=== PATIENT | male | born 1995 | race Caucasian/White ===

== ENCOUNTER 2018-04-15 12:06 | Inpatient (IN) | payer OTHER, MEDICAID ==
[2018-04-15 13:59] LABS: ALBUMIN 4.1 GM/DL (3.2-5.2); ALBUMIN/GLOBULIN RATIO 0.93 (1.00-1.93); ALKALINE PHOSPHATASE 73 U/L (45-117); ALT/SGPT 20 U/L (12-78); ANION GAP 3 MEQ/L (8-16); AST/SGOT 15 U/L (7-37); BILIRUBIN,DIRECT < 0.1 MG/DL (0.0-0.2); BILIRUBIN,TOTAL 0.3 MG/DL (0.2-1.0); BLOOD UREA NITROGEN 9 MG/DL (7-18); CALCIUM LEVEL 9.4 MG/DL (8.5-10.1); CARBON DIOXIDE LEVEL 33 MEQ/L (21-32); CHLORIDE LEVEL 103 MEQ/L (98-107); CREATININE FOR GFR 0.74 MG/DL (0.70-1.30); GLOMERULAR FILTRATION RATE > 60.0 (>60); GLUCOSE, FASTING 80 MG/DL (70-100); POTASSIUM SERUM 3.8 MEQ/L (3.5-5.1); SODIUM LEVEL 139 MEQ/L (136-145); TOTAL PROTEIN 8.5 GM/DL (6.4-8.2)
[2018-04-15 14:03] LABS: LACTIC ACID SEPSIS PROTOCOL 0.9 MMOL/L (0.4-2.0)
[2018-04-15] MEDS: MORPHINE 4 MG/ML 1ML VIAL/SYRINGE (J2270) IV (14:28)
[2018-04-15] MEDS: ONDANSETRON 4MG/2ML VIAL (J2405) IV (14:28)
[2018-04-15] MEDS: IBUPROFEN 400 MG TAB PO (14:29)
[2018-04-15] MEDS ORDERED: ACYCLOVIR IV (15:00)
[2018-04-15] MEDS ORDERED: FLUID PLACE HOLDER IV (15:00)
[2018-04-15] MEDS: PIPERACILLIN/TAZOBACTAM SOD 3.375 GM in D5W MINI-BAG PLUS 50 ML IV (15:40)
[2018-04-15] MEDS: methylPREDNISolone INJ 125 MG/2 ML VIAL (J2930) IV (15:40)
[2018-04-15 15:57] LABS: BASO % 0.2 % (0.0-1.0); EOS % 0.1 % (0.0-3.0); HEMATOCRIT 41.7 % (42.0-52.0); HEMOGLOBIN 14.2 g/dl (13.5-17.5); IMMATURE GRANULOCYTE % 0.4 % (0-3.0); LYMPH # 2.9 10^3/uL (1.5-6.5); LYMPH % 21.8 % (24.0-44.0); MEAN CORPUSCULAR HEMOGLOBIN 28.9 pg (27.0-33.0); MEAN CORPUSCULAR HGB CONC 34.1 g/dl (32.0-36.5); MEAN CORPUSCULAR VOLUME 84.9 fl (80.0-96.0); MONO # 1.4 10^3/uL (0.0-0.8); MONO % 10.6 % (0.0-5.0); NEUTROPHILS # 8.9 10^3/uL (1.8-7.7); NEUTROPHILS % 66.9 % (36.0-66.0); PLATELET COUNT, AUTOMATED 256 10^3/uL (150-450); RED BLOOD COUNT 4.91 10^6/uL (4.30-6.10); RED CELL DISTRIBUTION WIDTH 12.4 % (11.5-14.5); WHITE BLOOD COUNT 13.3 10^3/uL (4.0-10.0)
[2018-04-15] MEDS: ACYCLOVIR 710 MG in NS 250 ML IV (16:47)
[2018-04-15] MEDS: TRIFLURIDINE 1% OPHTH SOLN 7.5 ML OD ×4 (16:48→23:12)
[2018-04-15] MEDS: PANTOPRAZOLE 40MG TAB (PROTONIX) PO (17:13)
[2018-04-15] MEDS: KETOROLAC 30 MG/ML VIAL (J1885) IV (20:22)
[2018-04-15] MEDS: cefTRIAXone SOD 1 GM in D5W MINI-BAG PLUS 50 ML IV (20:23)
[2018-04-15 21:55] LABS: C REACTIVE PROTEIN QUANTITATIV 1.99 MG/DL (0.00-0.30)
[2018-04-16] MEDS: ACYCLOVIR 710 MG in NS 250 ML IV ×3 (01:04→17:14)
[2018-04-16] MEDS: TRIFLURIDINE 1% OPHTH SOLN 7.5 ML OD ×12 (01:04→23:10)
[2018-04-16 06:51] LABS: HEMATOCRIT 39.6 % (42.0-52.0); HEMOGLOBIN 13.6 g/dl (13.5-17.5); MEAN CORPUSCULAR HEMOGLOBIN 28.7 pg (27.0-33.0); MEAN CORPUSCULAR HGB CONC 34.3 g/dl (32.0-36.5); MEAN CORPUSCULAR VOLUME 83.5 fl (80.0-96.0); PLATELET COUNT, AUTOMATED 279 10^3/uL (150-450); RED BLOOD COUNT 4.74 10^6/uL (4.30-6.10); RED CELL DISTRIBUTION WIDTH 12.3 % (11.5-14.5); WHITE BLOOD COUNT 18.2 10^3/uL (4.0-10.0)
[2018-04-16 07:09] LABS: ANION GAP 8 MEQ/L (8-16); BLOOD UREA NITROGEN 17 MG/DL (7-18); CALCIUM LEVEL 9.2 MG/DL (8.5-10.1); CARBON DIOXIDE LEVEL 26 MEQ/L (21-32); CHLORIDE LEVEL 107 MEQ/L (98-107); CREATININE FOR GFR 0.81 MG/DL (0.70-1.30); GLOMERULAR FILTRATION RATE > 60.0 (>60); GLUCOSE, FASTING 107 MG/DL (70-100); POTASSIUM SERUM 4.2 MEQ/L (3.5-5.1); SODIUM LEVEL 141 MEQ/L (136-145)
[2018-04-16] MEDS: PANTOPRAZOLE 40MG TAB (PROTONIX) PO (08:54)
[2018-04-16] MEDS: ENOXAPARIN 40 MG/0.4 ML SYRINGE (J1650) SC (08:54)
[2018-04-16] MEDS: VENLAFAXINE **XR** 75MG CAPSULE PO (08:54)
[2018-04-16] MEDS: KETOROLAC 30 MG/ML VIAL (J1885) IV ×3 (08:55→23:11)
[2018-04-16] MEDS ORDERED: VENLAFAXINE **XR** 75MG CAPSULE PO (09:00)
[2018-04-16] MEDS: ACETAMINOPHEN TAB 650MG DOSE (2X325MG) PO (11:19)
[2018-04-16] MEDS: methylPREDNISolone INJ 125 MG/2 ML VIAL (J2930) IV (15:58)
[2018-04-16] MEDS: NICOTINE 21MG/24HR 1 EA TRANSDERMAL TD (18:03)
[2018-04-16] MEDS: cefTRIAXone SOD 1 GM in D5W MINI-BAG PLUS 50 ML IV (20:57)
[2018-04-17] MEDS: ACYCLOVIR 710 MG in NS 250 ML IV ×3 (00:59→18:22)
[2018-04-17] MEDS: TRIFLURIDINE 1% OPHTH SOLN 7.5 ML OD ×13 (01:00→23:00)
[2018-04-17 06:46] LABS: HEMATOCRIT 40.3 % (42.0-52.0); HEMOGLOBIN 13.4 g/dl (13.5-17.5); MEAN CORPUSCULAR HEMOGLOBIN 28.3 pg (27.0-33.0); MEAN CORPUSCULAR HGB CONC 33.3 g/dl (32.0-36.5); PLATELET COUNT, AUTOMATED 294 10^3/uL (150-450); RED BLOOD COUNT 4.74 10^6/uL (4.30-6.10); RED CELL DISTRIBUTION WIDTH 12.1 % (11.5-14.5); WHITE BLOOD COUNT 16.8 10^3/uL (4.0-10.0)
[2018-04-17] MEDS: KETOROLAC 30 MG/ML VIAL (J1885) IV (06:53)
[2018-04-17 07:03] LABS: ANION GAP 4 MEQ/L (8-16); BLOOD UREA NITROGEN 14 MG/DL (7-18); C REACTIVE PROTEIN QUANTITATIV 1.43 MG/DL (0.00-0.30); CALCIUM LEVEL 9.2 MG/DL (8.5-10.1); CARBON DIOXIDE LEVEL 32 MEQ/L (21-32); CHLORIDE LEVEL 106 MEQ/L (98-107); CREATININE FOR GFR 0.72 MG/DL (0.70-1.30); GLOMERULAR FILTRATION RATE > 60.0 (>60); GLUCOSE, FASTING 90 MG/DL (70-100); POTASSIUM SERUM 4.1 MEQ/L (3.5-5.1); SODIUM LEVEL 142 MEQ/L (136-145)
[2018-04-17] MEDS: NICOTINE 21MG/24HR 1 EA TRANSDERMAL TD (08:41)
[2018-04-17] MEDS: PANTOPRAZOLE 40MG TAB (PROTONIX) PO (08:41)
[2018-04-17] MEDS: VENLAFAXINE **XR** 75MG CAPSULE PO (08:41)
[2018-04-17] MEDS: ENOXAPARIN 40 MG/0.4 ML SYRINGE (J1650) SC (08:41)
[2018-04-17] MEDS: methylPREDNISolone INJ 125 MG/2 ML VIAL (J2930) IV (15:24)
[2018-04-17] MEDS: cefTRIAXone SOD 1 GM in D5W MINI-BAG PLUS 50 ML IV (21:31)
[2018-04-17] MEDS: NICOTINE POLACRILEX 2 MG GUM PO (23:18)
[2018-04-18] MEDS: TRIFLURIDINE 1% OPHTH SOLN 7.5 ML OD ×5 (01:00→09:34)
[2018-04-18] MEDS: ACYCLOVIR 710 MG in NS 250 ML IV ×2 (01:08→09:33)
[2018-04-18 06:12] LABS: HEMATOCRIT 41.1 % (42.0-52.0); HEMOGLOBIN 13.8 g/dl (13.5-17.5); MEAN CORPUSCULAR HEMOGLOBIN 28.4 pg (27.0-33.0); MEAN CORPUSCULAR HGB CONC 33.6 g/dl (32.0-36.5); MEAN CORPUSCULAR VOLUME 84.6 fl (80.0-96.0); PLATELET COUNT, AUTOMATED 312 10^3/uL (150-450); RED BLOOD COUNT 4.86 10^6/uL (4.30-6.10); RED CELL DISTRIBUTION WIDTH 12.1 % (11.5-14.5); WHITE BLOOD COUNT 13.4 10^3/uL (4.0-10.0)
[2018-04-18 06:26] LABS: ANION GAP 8 MEQ/L (8-16); BLOOD UREA NITROGEN 11 MG/DL (7-18); C REACTIVE PROTEIN QUANTITATIV 0.76 MG/DL (0.00-0.30); CALCIUM LEVEL 9.3 MG/DL (8.5-10.1); CARBON DIOXIDE LEVEL 30 MEQ/L (21-32); CHLORIDE LEVEL 106 MEQ/L (98-107); CREATININE FOR GFR 0.74 MG/DL (0.70-1.30); GLOMERULAR FILTRATION RATE > 60.0 (>60); GLUCOSE, FASTING 92 MG/DL (70-100); POTASSIUM SERUM 4.1 MEQ/L (3.5-5.1); SODIUM LEVEL 144 MEQ/L (136-145)
[2018-04-18] MEDS: PANTOPRAZOLE 40MG TAB (PROTONIX) PO (09:33)
[2018-04-18] MEDS: NICOTINE 21MG/24HR 1 EA TRANSDERMAL TD (09:33)
[2018-04-18] MEDS: VENLAFAXINE **XR** 75MG CAPSULE PO (09:33)
[2018-04-18] MEDS: ENOXAPARIN 40 MG/0.4 ML SYRINGE (J1650) SC (09:34)
== END 2018-04-18 10:55 | disposition home or self-care (01) | DRG 80 ==
LOC: M MS4PR 04-17 00:10 → M MSPAV 04-17 17:03 → M ED 12:06 → M ED INP 17:25 → M MSPAV 19:45
DX: B02.30 Zoster ocular disease, unspecified (principal); L03.213 Periorbital cellulitis; F17.210 Nicotine dependence, cigarettes, uncomplicated; R51 Headache; F41.9 Anxiety disorder, unspecified; Z79.899 Other long term (current) drug therapy